=== PATIENT | male | born 2000 | race African-American/Black ===

== ENCOUNTER 2024-02-27 07:32 | Emergency (ER) | payer SELFPAY ==
[~2024-02-27] VITALS: Ht 195.6 cm; Wt 72.6 kg
[2024-02-27] MEDS ORDERED: acetaMINOPHEN WITH coDEINE 1 TAB TAB PO ONE (08:30)
[2024-02-27 08:51] LABS: BASOPHILS # (AUTO) 0.02 K/uL (0.00-0.20); BASOPHILS % (AUTO) 0.2 % (0.0-5.0); EOSINOPHILS % (AUTO) 0.8 % (0.0-8.0); HEMATOCRIT 50.3 % (42-54); IMMATURE GRANULOCYTE ABSOLUTE 0.06 K/uL (0-1); LYMPHOCYTES # (AUTO) 1.6 K/uL (1.0-4.8); LYMPHOCYTES % (AUTO) 13.3 % (21.0-51.0); MEAN CORPUSCULAR HEMOGLOBIN 31.7 pg (27.0-33.0); MEAN CORPUSCULAR HGB CONC 33.4 g/dL (32.0-36.0); MEAN CORPUSCULAR VOLUME 94.9 fL (80-100); MONOCYTES # (AUTO) 0.6 K/uL (0.1-1.0); MONOCYTES % (AUTO) 5.1 % (3.0-13.0); NEUTROPHILS # (AUTO) 9.7 K/uL (1.8-7.7); NEUTROPHILS % (AUTO) 80.1 % (40.0-77.0); PLATELET COUNT (AUTO) 218 K/uL (130-400); RED CELL DISTRIBUTION WIDTH 12.6 % (11.0-15.5); WHITE BLOOD COUNT (AUTO) 12.1 K/uL (4.8-10.8)
[2024-02-27 09:03] LABS: APPEARANCE,URINE CLEAR (CLEAR); BILIRUBIN,URINE NEGATIVE (NEGATIVE); COLOR,URINE COLORLESS (YELLOW); GLUCOSE, URINE (UA) NEGATIVE (NEGATIVE); KETONES,URINE NEGATIVE (NEGATIVE); LEUKOCYTE ESTERASE ,URINE NEGATIVE Leu/uL (NEGATIVE); NITRATE,URINE NEGATIVE (NEGATIVE); OCCULT BLOOD,URINE NEGATIVE (NEGATIVE); PROTEIN,URINE NEGATIVE (NEGATIVE); UROBILINOGEN,URINE 0.2 mg/dL (0.2-1.0)
[2024-02-27] MEDS: LIDOCAINE HCL 2% VISCOUS 15 ML UDCUP PO ONE (09:04)
[2024-02-27] MEDS: MAG/ALUM/SIMETH 30 ML UDCUP PO ONE (09:04)
[2024-02-27] MEDS: 0.9%NACL 1000ML 1,000 ML IV ONE (09:04)
[2024-02-27] MEDS: DICYCLOMINE HCL 10 MG/5 ML ML PO ONE (09:04)
[2024-02-27] MEDS: PANTOPrazole 40 MG/VIAL IVP ONE (09:05)
[2024-02-27] MEDS: ondanSETRON 4MG INJ IVP ONE (09:05)
[2024-02-27 09:07] LABS: ALBUMIN 4.7 g/dL (3.5-5.0); BILIRUBIN,DIRECT 0.4 mg/dL (0.0-0.3); BILIRUBIN,TOTAL 1.4 mg/dL (0.2-1.0); CREATININE 0.9 mg/dL (0.5-1.3); POTASSIUM 3.4 mmol/L (3.5-5.1); TOTAL PROTEIN, SERUM 8.9 g/dL (6.0-8.3)
[2024-02-27 09:11] LABS: ADD UA MICROSCOPIC NO
[2024-02-27] MEDS ORDERED: PANT20TA PO (09:38)
[2024-02-27 12:05] VITALS: BP 124/66; PULSE 66; RESP 16; TEMP 97.8; O2SAT 99
== END 2024-02-27 12:04 | disposition home or self-care (01) ==
LOC: EDH 07:32
DX: K29.00 Acute gastritis without bleeding (principal)
CPT/HCPCS: 99285; 96374; 71045; 96361; 96375; 80076; 80048; 83690; 85025; 81003; 36415; 93005; J7030; J2405; J2470